=== PATIENT | female | born 1975 | race Hispanic/Latino ===

== ENCOUNTER 2018-12-15 15:19 | Emergency (ER) | payer OTHER ==
[2018-12-15 15:22] VITALS: BP 138/87; PULSE 78; RESP 18; TEMP 98.1; O2SAT 100
[2018-12-15 15:23] VITALS: BMI 32.9
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
== END 2018-12-15 16:26 | disposition home or self-care (01) ==
LOC: H.ER 15:19
DX: S09.90XA Unspecified injury of head, initial encounter (principal)